=== PATIENT | female | born 1990 | race African-American/Black ===

== ENCOUNTER 2018-09-12 17:04 | Observation (INO) | payer BC ==
[~2018-09-12] VITALS: Ht 177.8 cm; Wt 98.0 kg
[~2018-09-12 17:04] MED LIST: ACYC400T PO; FLUT16H NASAL; PNV11TAB5 PO
[2018-09-12] MEDS ORDERED: PHARMACY COMMUNICATION MISC SCH (17:45)
[2018-09-12] MEDS ORDERED: ACETAMINOPHEN 325 MG TAB PO PRN (17:45)
[2018-09-12 18:15] VITALS: BP 107/66
[2018-09-12 18:52] LABS: BASOPHILS % (AUTO) 0.6 % (0.0-5.0); EOSINOPHILS % (AUTO) 0.5 % (0.0-8.0); HEMATOCRIT 36.6 % (36-48); MEAN CORPUSCULAR HEMOGLOBIN 32.8 pg (27.0-33.0); MEAN CORPUSCULAR HGB CONC 34.4 g/dL (32.0-36.0); MEAN CORPUSCULAR VOLUME 95.3 fL (79-99); MONOCYTES % (AUTO) 4.6 % (3.0-13.0); NEUTROPHILS % (AUTO) 72.3 % (40.0-77.0); PLATELET COUNT (AUTO) 209 K/uL (130-400); RED BLOOD CELL COUNT(AUTO) 3.84 MIL/uL (4.00-5.50); RED CELL DISTRIBUTION WIDTH 13.8 % (11.0-15.5); WHITE BLOOD COUNT (AUTO) 11.2 K/uL (4.8-10.8)
[2018-09-12] MEDS: DEXTROSE 5%-LACTATED RINGERS 1,000 ML IV SCH (18:52)
[2018-09-12] MEDS ORDERED: MEDROL DAY 1 BREAKFAST PO SCH (19:00)
[2018-09-12] MEDS ORDERED: SERT25TA PO (19:02)
[2018-09-12] MEDS ORDERED: LACT1CAP72 PO (19:02)
[2018-09-12 19:38] VITALS: BP 102/57
[2018-09-12] MEDS ORDERED: ONDANSETRON HCL 4 MG/2 ML VIAL IVP PRN (21:45)
[2018-09-12] MEDS ORDERED: MEDROL DAY1 HS PO SCH (22:00)
[2018-09-12] MEDS ORDERED: MECLIZINE HCL 25 MG TABLET ONE (22:30)
[2018-09-12] MEDS: MECLIZINE HCL 25 MG TABLET PO PRN (22:37)
--- NOTE | 2018-09-12 22:37 | NUR ---
PT. MEDICATED WITH MECLIZINE P.O PER DR COLON'S ORDER FOR C/O SEVERE DIZZINESS.
[2018-09-12 22:57] VITALS: BP 105/62
--- NOTE | 2018-09-13 | NUR ---
PT. DENIED FURTHER DIZZINESS.
--- NOTE | 2018-09-13 02:00 | NUR ---
FHT'S 155. PT DENIED CONTRACTIONS AND NO VAG. DISCHARGE NOTED.
--- NOTE | 2018-09-13 02:15 | NUR ---
PT. AMBULATED TO BR, DENIED DIZZINESS.
[2018-09-13] MEDS: DEXTROSE 5%-LACTATED RINGERS 1,000 ML IV SCH ×2 (02:38→11:39)
[2018-09-13 03:00] VITALS: BP 104/60
[2018-09-13] MEDS ORDERED: MEDROL DAY 2 BRK PO NR (07:30)
[2018-09-13 07:45] VITALS: BP 112/62
--- NOTE | 2018-09-13 08:00 | NUR ---
PATIENT ASSESSED AND STATES FEELING BETTER AFTER MECLIZINE WAS GIVEN AND HEART TONES WERE 150bpm BELOW UMBILICUS.
[2018-09-13] MEDS: MECLIZINE HCL 25 MG TABLET PO PRN ×2 (08:55→16:50)
--- NOTE | 2018-09-13 10:00 | NUR ---
C/O DIZZINESS AND WAS STARTED ON MECLIZINE ORDERED.
[2018-09-13] MEDS ORDERED: MEDROL DAY 2 LCH PO NR (11:30)
[2018-09-13 11:32] VITALS: BP 112/59
--- NOTE | 2018-09-13 11:32 | NUR ---
DCP CM met with pt discussed dc plans. Pt is independent prior to admission, lives at home with spouse. Denies any equipments/services. Pt feels safe to go back home, still drives spouse able to assist with transportation and needs. DC plan to home once stable. CM to con to follow up. Addendum: 09/13/18 at 1134 by LIEN DARDEN LVN CM Amended: Links added.
[2018-09-13 15:50] VITALS: BP 115/58
[2018-09-13] MEDS ORDERED: MEDROL DAY 2 DIN PO NR (16:30)
--- NOTE | 2018-09-13 17:30 | NUR ---
DR. FOURNIER CALLED FOR UPDATE ON PATIENT AND INFORMED OF PATIENT WANTING TO TAKE SHOWER. DR. FOURNIER INDICATED THAT IF PATIENT WANTED TO SHOWER TO LET HER AND IF SHE TOLERATES ACTIVITY PATIENT COULD BE DISCHARGED TO HOME. PATIENT SHOWER AND AMBULATED IN HALLWAY.
--- NOTE | 2018-09-13 18:30 | NUR ---
DR. FOURNIER WAS CALLED AT THIS TIME AND INFORMED THAT PATIENT HAD BEEN ABLE TO SHOWER AND WALK IN HALLWAY AND WANTED TO GO HOME AND ORDER RECEIVED FOR DISCHARGE. PATIENT INFORMED AND SCRIPT WAS CALLED [facility] IN [place] PER DR. FOURNIER.
--- NOTE | 2018-09-13 18:50 | NUR ---
DISCHARGE INSTRUCTIONS GIVEN AND PATIENT WILL WAIT ON RIDE.
--- NOTE | 2018-09-13 19:15 | NUR ---
PATIENT WAS TAKEN VIA W/C TO FAMILY VEHICLE AND WAS DISCHARGED TO FAMILY IN STABLE CONDITION.
[2018-09-13] MEDS ORDERED: MEDROL DAY 2 HS PO NR (21:00)
[2018-09-14] MEDS ORDERED: MEDROL DAY 3 PO NR (07:30)
[2018-09-15] MEDS ORDERED: MEDROL DAY 4 BKF PO NR (07:30)
[2018-09-15] MEDS ORDERED: MEDROL DAY 4 LCH PO NR (11:30)
[2018-09-15] MEDS ORDERED: MEDROL DAY 4 DIN PO NR (16:30)
[2018-09-16] MEDS ORDERED: MEDROL DAY 5 BKF PO NR (07:30)
[2018-09-16] MEDS ORDERED: MEDROL DAY 5 HS PO NR (21:00)
[2018-09-17] MEDS ORDERED: MEDROL DAY 6 PO NR (07:30)
== END 2018-09-13 19:15 | disposition home or self-care (01) ==
LOC: LDH 17:04 → WSH 17:05
DX: O26.892 Other specified pregnancy related conditions, second trimester (principal); R42 Dizziness and giddiness; Z3A.25 25 weeks gestation of pregnancy
CPT/HCPCS: 36415; 85025; 96360; 96361 ×2; G0378 ×26; J7509 ×5

== ENCOUNTER 2018-10-19 17:08 | Observation (INO) | payer BC ==
[~2018-10-19] VITALS: Ht 177.8 cm; Wt 102.5 kg
[~2018-10-19 17:08] MED LIST changes: -ACYC400T PO; -FLUT16H NASAL; +LACT1CAP72 PO; +SERT25TA PO
[2018-10-19 17:44] LABS: APPEARANCE,URINE Clear (CLEAR); BILIRUBIN,URINE Negative (NEGATIVE); COLOR,URINE Yellow (YELLOW); GLUCOSE, URINE (UA) Negative (NEGATIVE); KETONES,URINE Negative (NEGATIVE); LEUKOCYTE ESTERASE ,URINE Negative (NEGATIVE); NITRATE,URINE Negative (NEGATIVE); OCCULT BLOOD,URINE Negative (NEGATIVE); PH,URINE 5.5 (5.0-8.0); PROTEIN,URINE Negative (NEGATIVE); UROBILINOGEN,URINE 0.2 mg/dL (0.2-1.0)
[2018-10-19] MEDS ORDERED: PROMETHAZINE HCL 25 MG/ML 1ML AMPULE IM PRN (18:30)
[2018-10-19] MEDS ORDERED: LACTATED RINGERS 1000ML 1,000 ML IV SCH (18:30)
== END 2018-10-19 21:10 | disposition home or self-care (01) ==
LOC: EDH 17:08 → LDH 17:27
DX: O21.2 Late vomiting of pregnancy (principal); O26.893 Other specified pregnancy related conditions, third trimester; R10.30 Lower abdominal pain, unspecified; Z3A.32 32 weeks gestation of pregnancy
CPT/HCPCS: 81003; 99283; G0378 ×4; 96360

== ENCOUNTER 2018-11-11 14:42 | Observation (INO) | payer BC ==
[~2018-11-11] VITALS: Ht 177.8 cm; Wt 105.7 kg
[2018-11-11 15:21] LABS: APPEARANCE,URINE Cloudy (CLEAR); BILIRUBIN,URINE Negative (NEGATIVE); COLOR,URINE Yellow (YELLOW); GLUCOSE, URINE (UA) Negative (NEGATIVE); KETONES,URINE Negative (NEGATIVE); LEUKOCYTE ESTERASE ,URINE Negative (NEGATIVE); NITRATE,URINE Negative (NEGATIVE); OCCULT BLOOD,URINE Negative (NEGATIVE); PH,URINE 6.5 (5.0-8.0); PROTEIN,URINE Negative (NEGATIVE); UROBILINOGEN,URINE 0.2 mg/dL (0.2-1.0)
[2018-11-11 15:35] LABS: BACTERIA,URINE Few /HPF (None Seen); RBC,URINE None Seen /HPF (0-1); SQUAMOUS EPITHELIAL CELL,UR Few /HPF (0-2); WBC,URINE 0-1 /HPF (0-1)
[2018-11-11] MEDS ORDERED: LACTATED RINGERS 1000ML 1,000 ML IV PRN (16:14)
[2018-11-11] MEDS ORDERED: ONDANSETRON HCL 4 MG/2 ML VIAL IVP PRN (16:15)
[2018-11-11 17:18] LABS: MEAN CORPUSCULAR HEMOGLOBIN 31.1 pg (27.0-33.0); MEAN CORPUSCULAR HGB CONC 33.1 g/dL (32.0-36.0); PLATELET COUNT (AUTO) 239 K/uL (130-400); RED BLOOD CELL COUNT(AUTO) 3.72 MIL/uL (4.00-5.50); RED CELL DISTRIBUTION WIDTH 13.8 % (11.0-15.5); WHITE BLOOD COUNT (AUTO) 9.8 K/uL (4.8-10.8)
[2018-11-11 17:33] LABS: CREATININE 0.6 mg/dL (0.5-1.5); POTASSIUM 3.6 mmol/L (3.5-5.1)
[2018-11-11 19:15] VITALS: BP 122/57
[2018-11-11] MEDS ORDERED: LACTATED RINGERS 1000ML 1,000 ML IV SCH (20:30)
[2018-11-11 21:19] VITALS: BP 116/71
[2018-11-12 00:01] VITALS: BP 98/59
--- NOTE | 2018-11-12 00:15 | NUR ---
COMFORT C/O PAIN TO VAGINAL AREA, PLACED ON EFM , MONITOR STRIP CHECKED BY HARLEEN GONZALEZ RN, WILL CONTINUE TO OBSERVE Addendum: 11/12/18 at 0123 by BETITO JOYNER LVN Amended: Links added.
--- NOTE | 2018-11-12 01:23 | NUR ---
COMFORT C/O HARLEEN BURNETT RN AWARE AND SPOKE WITH PATIENT Addendum: 11/12/18 at 0127 by BETITO JOYNER LVN Amended: Links added.
--- NOTE | 2018-11-12 01:30 | NUR ---
STATUS TRANSFERRED VIA BED TO L&D CHIQUIS GONZALEZ RN, PT A/A/O, Addendum: 11/12/18 at 0313 by BETITO JOYNER LVN Amended: Links added.
[2018-11-12] MEDS ORDERED: TERBUTALINE SULFATE VIAL 1MG/ML SQ ONE (01:33)
[2018-11-12] MEDS ORDERED: LACTATED RINGERS 1000ML 1,000 ML IV SCH (01:45)
[2018-11-12] MEDS ORDERED: TERBUTALINE SULFATE VIAL 1MG/ML SQ SCH (02:00)
[2018-11-12] MEDS ORDERED: MEPERIDINE-PF 50 MG/ML SYG IVP PRN (02:00)
[2018-11-12] MEDS ORDERED: PROMETHAZINE HCL 25 MG/ML 1ML AMPULE IM PRN (02:00)
[2018-11-12] MEDS ORDERED: MEPERIDINE-PF 25 MG/ML SYG ONE (02:04)
[2018-11-12 09:33] LABS: HEMATOCRIT 35.2 % (36-48); MEAN CORPUSCULAR HEMOGLOBIN 31.5 pg (27.0-33.0); MEAN CORPUSCULAR HGB CONC 33.2 g/dL (32.0-36.0); MEAN CORPUSCULAR VOLUME 94.9 fL (79-99); PLATELET COUNT (AUTO) 202 K/uL (130-400); RED BLOOD CELL COUNT(AUTO) 3.72 MIL/uL (4.00-5.50); RED CELL DISTRIBUTION WIDTH 13.8 % (11.0-15.5); WHITE BLOOD COUNT (AUTO) 8.7 K/uL (4.8-10.8)
[2018-11-12] MEDS ORDERED: ACETAMINOPHEN 325 MG TAB ONE ×2 (11:11→11:22)
[2018-11-12] MEDS ORDERED: ACETAMINOPHEN 325 MG TAB PO PRN (11:15)
[2018-11-13 06:12] LABS: HEPATITIS Bs ANTIGEN SCREEN P Negative (Negative)
== END 2018-11-12 13:42 | disposition home or self-care (01) ==
LOC: LDH 14:42 → WSH 21:05 → LDH 11-12 01:36
DX: O26.893 Other specified pregnancy related conditions, third trimester (principal); R19.7 Diarrhea, unspecified; R42 Dizziness and giddiness; R51 Headache; M54.9 Dorsalgia, unspecified; R11.0 Nausea; R20.0 Anesthesia of skin; Z3A.35 35 weeks gestation of pregnancy
CPT/HCPCS: 36415 ×2; 80048; 81001; 85027 ×2; 86592; 86850; 86900; 86901; 87340; 96360; 96361 ×4; 96372; G0378 ×23; J2175; J3105; J7120 ×3

== ENCOUNTER → 2019-11-12 | Outpatient (CLI) | payer BC ==
[~2019-11-12] MED LIST changes: +GADODIAMIDE 10 MMOL/20 ML VIAL IV ONE
== END | disposition home or self-care (01) ==
LOC: RAH 12:44
PROVIDERS: ATTEND Student in an Organized Health Care Education/Training Program
DX: J98.11 Atelectasis (principal); N60.42 Mammary duct ectasia of left breast; N60.41 Mammary duct ectasia of right breast
CPT/HCPCS: 71552; 72197; A9579

== ENCOUNTER → 2022-07-31 | Outpatient (CLI) | payer BC ==
[~2022-07-31] MED LIST changes: -GADODIAMIDE 10 MMOL/20 ML VIAL IV ONE; +IOHEXOL-350 50ML VIAL IV ONE; -LACT1CAP72 PO; +LACT1CAP81 PO
== END | disposition home or self-care (01) ==
LOC: RAH 08:53
PROVIDERS: ATTEND Obstetrics & Gynecology
DX: N97.1 Female infertility of tubal origin (principal)
CPT/HCPCS: 36415; 58340; 74740; 84703; Q9967